=== PATIENT | female | born 1970 | race Caucasian/White ===

== ENCOUNTER 2018-03-24 17:20 | Inpatient (IN) | payer OTHER ==
[~2018-03-24] VITALS: Ht 160 cm; Wt 59.0 kg
[~2018-03-24 17:20] MED LIST: ALPRAZOLAM 0.50.5 M1 PO; BENICAR 5 MG5 MG PO; BYSTOLIC 5 MG5 MG PO; CELEXA 10 MG TA10 MG PO; COUMADIN 3 MG TA3 MG PO; ENOXAPARIN30 MG/0.3 SUBQ; HYDROCODONE-AP1 EAC6 PO; IBUPROFEN 400400 M1 PO; JANTOVEN6 MG PO; LIDODERM 5%1 PATC1 TRANSDERM; LIPITOR80 MG PO; NAPROSYN250 MG PO; NEURONTIN 300300 M1 PO; NEURONTIN 300M300 M2; OLEPTRO ER150 MG PO; OXYCODONE HCL 55 MG; PERCOCET 5-3251 EACH PO; SIMETHICON CHEW80 MG PO; TESSALON PERLE100 MG PO; TOPROL XL25 MG PO; TRAZODONE HCL PO
[2018-03-24 18:10] VITALS: BP 94/44
[2018-03-24 19:05] LABS: HEMATOCRIT 37.7 % (37.0-47.0); HEMOGLOBIN 12.7 gm/dL (12.0-15.0); MCH 30.2 pg (26.0-34.0); MCHC 33.6 g/dL (28.0-37.0); MCV 89.9 fL (80.0-100.0); RBC 4.19 mil/uL (4.20-5.00)
[2018-03-24 19:23] LABS: ALBUMIN 4.1 g/dL (3.4-5.0); CALCIUM 9.1 mg/dL (8.5-10.1); POTASSIUM 3.9 mmol/L (3.5-5.1); TOTAL BILIRUBIN 0.4 mg/dL (<0.1-1.0); TOTAL PROTEIN 7.1 g/dL (6.4-8.2)
[2018-03-24] MEDS ORDERED: LAMICTAL100 MG PO (19:38)
[2018-03-24] MEDS ORDERED: LAMICTAL XR100 MG PO (19:39)
[2018-03-24] MEDS ORDERED: LASIX 20 MG TAB20 MG PO (19:40)
[2018-03-24] MEDS ORDERED: COZAAR 25 MG TA25 M1 PO (19:43)
[2018-03-24] MEDS ORDERED: XANAX 0.5 MG0.5 MG PO (19:47)
[2018-03-24 19:52] VITALS: BP 93/51
--- NOTE | 2018-03-24 20:48 | NUR ---
PT WAS DIRECT ADMIT FROM ALENA'S OFFICE AND ARRIVED AT APPROX 1800. DR. CARVAJAL CALLED AND ORDERS RECEIVED. PT NERVOUS AND COMPLAINS OF CHEST, EPIGASTRIC AND BACK PAIN. SIGNIFICANT OTHER AT THE BEDSIDE. BLOOD PRESSURE LOW AND PT WAS ASYMPTOMATIC. PT STATES THAT HER BLOOD PRESSURE IS NORMALLY LOW. FORMS SIGNED AND MED REC COMPLETED. PT HAD LAB TESTS AND EKG. REPORT GIVEN TO HEMODIALYSIS LAB TECHNICIAN NURSE.
[2018-03-25] VITALS (16 sets, daily range): BP systolic 72–102; BP diastolic 34–58
--- NOTE | 2018-03-25 04:45 | NUR ---
ASSESSMENT DOCUMENTED.PT RESTUNG IN NO ACUTE DISTRESS.ADMITTED WITH CHEST PAIN THAT RADIATES TO SHOULDERS.PT WAS GIVEN MOPHINE AT THE BEGINNING OF THE SHIFT THAT ALLEVIATED CHEST PAIN.PT CONTINUE STO C/O PAIN TO CHEST LIKE IN RIB CAGE AND EPIGASTRIC PAIN THAT OCCURS WITH POSITIONING AND WITH EVEN SLIGHT BELCHING.PT STATES NO PAIN WITH REST.NPO AFTER 4PM FOR CARDIAC JOHANNY TODAY.TROPONIN NEGATIVE.REVIEWED POC WITH PT,ADN IN AGREEMENT.SOFT BLOOD PRESSURE IN SBP 90S ,80S BUT PT STATED THAT HER BASELINE.WILL CONT TO MONITOR PER POC.
[2018-03-25 07:53] LABS: INR 1.4; PROTIME 14.6 Seconds (9.3-11.4)
--- NOTE | 2018-03-25 08:01 | EKG ---
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 : 1970 Requested By: Chaim Deras Order Number: [id number] MD: Damion Everett Measurements Intervals [place] Rate: 59 P: 54 [place]: 144 QRS: 83 QRSD: 118 T: 95 QT: 433 QTc: 429 Interpretive Statements Sinus rhythm Septal infarct, age indeterminate Nonspecific T wave abnormality Compared to ECG 10/12/2014 20:22:38 T-wave abnormality now present Sinus bradycardia no longer present Electronically Signed On 03-25-2018 8:01:15 AFTER SCHOOL PROGRAM ASSISTANT by Damion Everett [email or web address] <ELECTRONICALLY SIGNED> By: Damion Everett MD, [facility] 03/25/18 0801 184 40 Damion Everett MD, [facility] /EPI
--- NOTE | 2018-03-25 09:23 | EKG ---
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1970 Requested By: Anusha Laughlin Order Number: [id number] MD: Damion Everett Measurements Intervals [place] Rate: 53 P: 57 TN: 148 QRS: 89 QRSD: 117 T: 109 QT: 434 QTc: 408 Interpretive Statements Sinus bradycardia Nonspecific T wave abnormality Compared to ECG 10/12/2014 20:22:38 Intraventricular conduction delay now present Septal Q waves are no longer present Electronically Signed On 03-25-2018 9:23:35 POLICY INTERN by Damion Everett [email or web address] <ELECTRONICALLY SIGNED> By: Damion Everett MD, [facility] 03/25/1823 4 Damion Everett MD, [facility] /EPI
--- NOTE | 2018-03-25 18:04 | NUR ---
ASSESSMENT CHARTED. HAD LOW BP. HAD STENT PLACED THIS SHIFT. RIGHT GROIN INCISION C/D/I. NO HEMATOMA NOTED. WILL CONTINUE TO MONITOR.
[2018-03-26 04:41] VITALS: BP 98/42
--- NOTE | 2018-03-26 04:55 | NUR ---
ASSUMED PT CARE AT 1900. PT A&0X4. VSS EXCEPT BP WHICH WAS LOW, PT REPORTS USUALLY HAVING A LOW BP BASELINE. MAP LAST NIGHT WAS 56, MAP THIS AM WAS 60. PT RESTED WELL ALL NIGHT, SHE COMPLAINED OF SOME SORENESS TO HER RIGHT GROIN, MORPHINE AMINISTERED AND WAS EFFECTIVE. SHE ALSO COMPLAINED OF SOME DRY NOSE, WATERBASED LUBE APPLIED WITH A NASAL SWAB, PT REPORTED RELIEF. NO FURTHER COMPLAINTS OVERNIGHT. PT SHOULD D/C THIS AM.
[2018-03-26 05:01] LABS: INR 1.1; PROTIME 11.4 Seconds (9.3-11.4)
[2018-03-26 05:26] LABS: ANION GAP 7 mmol/L (7-16); BUN 13 mg/dL (7-18); CALCIUM 8.9 mg/dL (8.5-10.1); CHLORIDE 106 mmol/L (98-107); CO2 27 mmol/L (21-32); GLUCOSE 88 mg/dL (74-106); POTASSIUM 4.2 mmol/L (3.5-5.1); SGOT 19 U/L (15-37); SGPT 27 U/L (30-65); SODIUM 140 mmol/L (136-145); TOTAL BILIRUBIN 0.6 mg/dL (<0.1-1.0); TOTAL PROTEIN 5.7 g/dL (6.4-8.2); TROPONIN-I <0.06 ng/mL (<0.06)
[2018-03-26] MEDS ORDERED: EFFIENT10 MG PO (08:03)
[2018-03-26 08:10] VITALS: BP 102/45
--- NOTE | 2018-03-26 08:20 | EKG ---
[address] [address] ELECTROCARDIOGRAM REPORT Name: EDWARD ROY Room #: 214-P ADM IN M.R.#: [id number] Admission: 03/24/18 Attend Phys: Chaim Deras MD, Discharge: Date of : 66 Report #: [id number] THIS REPORT FOR: //name// [facility] Test Date: 2018-03-26 Test Time: 07:29:47 Pat Name: EDWARD ROY Department: Room: 214 P Gender: F Artist'S Model: : 1970 Requested By: Chami Deras Order Number: [id number] MD: Tyler Kathleen Measurements Intervals [place] Rate: 64 P: 54 NJ: 150 QRS: 74 QRSD: 118 T: 93 QT: 410 QTc: 423 Interpretive Statements Sinus rhythm Nonspecific intraventricular conduction delay Compared to ECG 03/25/2018 07:25:51 Intraventricular conduction delay now present Sinus bradycardia no longer present T-wave abnormality no longer present Electronically Signed On 03-26-2018 8:19:56 COOLING TOWER OPERATOR by Tyler Kathleen [email or web address] <ELECTRONICALLY SIGNED> By: Tyler Kathleen MD 03/26/18818 8 Tyler Kathleen MD /EPI
[2018-03-26] MEDS ORDERED: PROTONIX40 M2 PO (08:21)
[2018-03-26 09:41] VITALS: BP 102/45
--- NOTE | 2018-03-26 10:08 | NUR ---
ASSESSMENT DOCUMENTED. PT ALERT AND ORIENTED. VSS. DENIED HAVING PAIN OR DISCOMFORT. REPORT FEELING BETTER TODAY. SEEN BY DR. CARVAJAL. ORDERS GIVEN TO DISCHARGE PT TO HOME. DISCHARGE INSTRUCTIONS GIVEN TO PT. PT VERBERLIZE UNDERSTANDING.
--- NOTE | 2018-03-26 18:36 | CATHLAB ---
[facility] [address] [place] [address] INVASIVE PROCEDURE REPORT Name: EDWARD ROY Room #: 214-P DIS IN .R.#: [id number] Admission: 03/24/18 Attend Phys: Chaim Deras, Discharge: 03/26/18 Date of : 66 Date of Service: 03/26/18 1835 Report #: [id number] THIS REPORT FOR: //name// APPROVED REPORT Study performed: 03/25/2018 12:31:24 Patient Details Patient Status: In-Patient Room #: 214 The patient is a 47 year-old female Event Personnel Chaim Deras Sheep Or Calf Grader, Lamont Guadarrama RN RN, Gregorio Reyes RN, Eneida Simpson RTR, SPECIAL OFFICER AUTOMAT Monitor, Demetris Hidalgo Scrub Procedures Performed Art Access - R femoral artery* Left Heart Cath Coronaries, Bypass Grafts 2229131 LHCCORCABG Aortogram Abdominal Peripheral Angio 498493 68786 Initial Mod Sed Same Phys/QHP Gr5y 343360 61386 Mod Sed Same Phys/QHP Ea 916934 HAIR Place w/wo Plasty Single LAD 874712 Indication Chest pain Procedure Narrative The Right Groin^ was infiltrated with 1% Lidocaine subcutaneous anesthesia. A PINNACLE 6FR Sheath #[id number] sheath was inserted into the RFA^. Coronary angiography was performed using coronary diagnostic catheters. The right coronary system was accessed and visualized with a JR4 catheter. The left coronary system was accessed and visualized with a JL4 catheter. The left ventricle was accessed and visualized with a PIGTAIL catheter. Left ventriculogram was performed in 30 degree projection. An aortogram of the abdominal aorta was performed. Pre-demployment femoral angiogram was performed . Closure device was deployed with a 6 Fr MYNXGRIP 6/7F #[id number]. There was no hematoma. Intraoperative Conscious Sedation [facility] [place] [address] INVASIVE PROCEDURE REPORT Name: EDWARD ROY ANN Room #: 214-P [facility] IN .R.#: [id number] Admission: 03/24/18 Attend Phys: Chaim Deras, Discharge: 03/26/18 Date of : 66 Date of Service: 03/26/18 1835 Report #: [id number] Sedation start time: 12:45 Case end Time: 14:14 Fentanyl 100 mcg Versed 2 mg Fluoro Time: 15.28 minutes Dose: DAP 3828.00 cGycm2 516 mGy Contrast Type and Amount: Visipaque 265 ml Hemodynamics The aortic pressure is 100/52 mmHg with a mean of 72 mmHg. The left ventricular pressure is 112/2 mmHg with a mean of mmHg. The left ventricular end diastolic pressure is 22 mmHg. PCI Technique Lesion Percutaneous coronary intervention was performed on the OSTIAL-PROXIMAL SOLIS. A LAUNCHER 6FR JR 4 #[id number] Guide Catheter was used to engage the ostium. A Luge Wire .014 x 182CM #[id number] Interventional Guidewire was used to cross the lesion. STENT DEPLOYMENT A drug-eluting stent RESOLUTE MARIE OTW 3.5 X 18 #[id number] was inserted and inflated up to 10.00atm for 15seconds. Additional Inflation: 10.00atm for 29seconds. 3.0MM X 38MM RESOLUTE MARIE OTW HAIR DEPLOYED IN DISTAL SOLIS-INFLATED TO 8 TABBY FOR 28 SECONDS; 3.0MM X 38MM RESOLUTE MARIE DELIVERY SYSTEM USED IN MID SOLIS-INFLATED TO 6 TABBY FOR 22 SECONDS AND 8 TABBY FOR 25 SECONDS 2.5MM X 18MM RESOLUTE MARIE OTW HAIR DEPLOYED IN ANASTAMOSIS TO LAD-INFLATED TO 8 TABBY FOR 31 SECONDS AND 16 TABBY FOR 24 SECONDS; POST DILATING DISTAL SOLIS WITH 2.5MM X 18MM RESOLUTE MARIE DELIVERY SYSTEM-INFLATED TO 18 TABBY FOR 15 SECONDS 3.0MM X 26MM INTEGRITY OTW BMS DEPLOYED IN PROXIMAL SOLIS-INFLATED TO 8 TABBY FOR 31 SECONDS AND 10 TABBY FOR 12 SECONDS AND 10 TABBY FOR 18 SECONDS Conclusion #1 successful PTCA stenting of a dissected SOLIS artery from catheter placement re-0.5 x 18 [place] drug-eluting stent in the ostium of this SOLIS graft placement of a 30 by 38 in the distal portion of the SOLIS graft proximal to the anastomosis [address] [address] INVASIVE PROCEDURE REPORT Name: EDWARD ROY Room #: 214-P [facility] IN M.R.#: [id number] Admission: 03/24/18 Attend Phys: Chaim Deras, Discharge: 03/26/18 Date of : 66 Date of Service: 03/26/181834 Report #: [id number] Followed by placement of a 2.5 x 18 in the distal graft across the anastomosis and proximal LAD. And then a fourth stent placed in the mid graft due to continued interruption of the spiral dissection a 30 by 26 bare metal stent. Final result was excellent with brisk flow into the relatively small LAD. This is been a previously infarct vessel but only moderate area of anterior lateral apical hypokinesis noted more predominantly on echo then LV gram. No new damage is noted. She is hemodynamically stable Heparin and Integrilin and possibly a loading dose were utilized. Patient profoundly aspirin allergic we will utilize processing Grell and reinstitute of anticoagulation with Coumadin for factor V Leiden #2 left main mildly disease giving rise to LAD which is occluded and filled via the SOLIS graft see above and circumflex #3 nondominant circumflex is patent in the AV groove the proximal OM system is occluded and filled via vein graft #4 graft to to small OM branches remains patent. #5 large dominant right coronary artery is well preserved. #6 normal left ventricular size with mild anterior lateral apical hypokinesis EF 45-50% #7 abdominal aortogram is intact renal arteries iliac system widely patent no aneurysm Recommendations and plan: As above complicated dissection of SOLIS graft although final result excellent with much better flow throughout this diffusely diseased SOLIS filling a LAD which is preserved and moderately diseased. We'll utilize prostaglandin L and anticoagulation with Coumadin for factor V Leiden deficiency. Patient hemodynamically stable transfer to CCU we'll continue Integrilin drip <ELECTRONICALLY SIGNED> By: Chaim Deras MD, [facility] 03/26/181834 34 34 Chaim Deras MD, FACC /INF
== END 2018-03-26 10:21 | disposition home or self-care (01) | DRG 246 ==
LOC: 2N 17:20 → ENTRNSPT 03-26 10:03 → 2N 03-26 10:21
PROVIDERS: ADMIT Internal Medicine Cardiovascular Disease
DX: I25.10 Atherosclerotic heart disease of native coronary artery without angina pectoris (principal); D68.51 Activated protein C resistance; I10 Essential (primary) hypertension; E78.5 Hyperlipidemia, unspecified; F41.9 Anxiety disorder, unspecified; Z95.1 Presence of aortocoronary bypass graft; Z79.899 Other long term (current) drug therapy; Z88.0 Allergy status to penicillin; Z88.8 Allergy status to other drugs, medicaments and biological substances; Z88.6 Allergy status to analgesic agent; Z91.011 Allergy to milk products
CPT/HCPCS: 10081

== ENCOUNTER 2019-07-16 18:27 | Emergency (ER) | payer OTHER ==
[~2019-07-16] VITALS: Ht 160 cm; Wt 49.9 kg
[~2019-07-16 18:27] MED LIST changes: +COZAAR 25 MG TA25 M1 PO; +EFFIENT10 MG PO; +LAMICTAL XR100 MG PO; +LAMICTAL100 MG PO; +LASIX 20 MG TAB20 MG PO; +PROTONIX40 M2 PO; +XANAX 0.5 MG0.5 MG PO
[2019-07-16] MEDS ORDERED: IBUPROFEN 600600 M1 PO (19:59)
[2019-07-16] MEDS ORDERED: CIPRO500 M1 PO (19:59)
[2019-07-16 20:04] VITALS: BP 131/58
== END 2019-07-16 20:10 | disposition home or self-care (01) ==
LOC: ER 18:27
DX: S61.041A Puncture wound with foreign body of right thumb without damage to nail, initial encounter (principal); F31.9 Bipolar disorder, unspecified; I25.10 Atherosclerotic heart disease of native coronary artery without angina pectoris; E78.00 Pure hypercholesterolemia, unspecified; F41.9 Anxiety disorder, unspecified; I10 Essential (primary) hypertension; Z90.711 Acquired absence of uterus with remaining cervical stump; Z98.61 Coronary angioplasty status; Z79.899 Other long term (current) drug therapy; Z79.01 Long term (current) use of anticoagulants; Z88.6 Allergy status to analgesic agent; Z88.8 Allergy status to other drugs, medicaments and biological substances; Z88.1 Allergy status to other antibiotic agents; Z91.011 Allergy to milk products; X58.XXXA Exposure to other specified factors, initial encounter; Y93.89 Activity, other specified; Y92.89 Other specified places as the place of occurrence of the external cause; Y99.8 Other external cause status